=== PATIENT | male | born 1950 | race African-American/Black ===

== ENCOUNTER 2019-07-14 05:17 | Day surgery (SDC) | payer MEDICARE, OTHER ==
--- NOTE | 2019-07-11 14:15 | Pre-op HX & Phy Repo 2 SIG ---
DATE OF ADMISSION: 07/14/2019 Surgery will be July 14, 2019. PREOPERATIVE DIAGNOSIS: Choroidal effusions with flat anterior chamber, right eye. BRIEF NOTE: This is a first [place] admission for the patient, who is a very nice 69-year-old gentleman with a long history of glaucoma. He had a trabeculectomy surgery performed on the right eye in June and although the pressure reduced, he developed choroidal effusions on the flat anterior chamber. The drug discovery informatics specialist made an attempt to deepen the chamber with an injection at the office. This worked for a time, but the choroidal effusions caused anterior movement of the lens and iris complex. He was admitted for drainage of the choroidals and reformation of the anterior chamber. PAST MEDICAL HISTORY: Remarkable for diabetes, elevated cholesterol. MEDICATIONS: He is on Humulin, atorvastatin, amlodipine, and benazepril. ALLERGIES: He has no known allergies. PHYSICAL EXAMINATION: Best vision at the time of the visit was 20/200 in the right eye and 20/20 in the left with pressures of 18 and 19. The anterior segment on the right showed a filtering bleb at the 11 o'clock position, which appeared functional. The anterior chamber was flat. The cornea however remained clear. There was a moderate nuclear cataract. The left anterior segment showed 3+ nuclear sclerosis with the chamber being deep and quiet. Funduscopic examination showed ring choroidal effusions, not kissing. There was glaucomatous cupping at about 0.6. No evidence of vitreous hemorrhage was seen. The left fundus showed a 0.45 cup with normal-appearing posterior pole. There was no evidence of diabetic retinopathy in either eye. ASSESSMENT: 1. Serous choroidal effusions, right eye with shallow anterior chamber. 2. Primary open angle glaucoma. 3. Diabetes without evidence of retinopathy. PLAN: The plan is to perform a drainage procedure in at least two quadrants of the choroidal effusions. While at the same time, deepening the anterior chamber. The risks and benefits of the surgery gone over with the patient with potential for hemorrhage, infection, retinal detachment, worsening of the glaucoma, and the possibility of loss of the eye. The risk of anesthesia was discussed. The patient understands and consents to surgery, which will be performed on Sunday. Pierre Garcia M.D. DR: ANSHU JOB#: [id number] CC:
[2019-07-14] VITALS (8 sets, daily range): BP systolic 155–176; BP diastolic 72–108
[~2019-07-14] VITALS: Ht 175.3 cm; Wt 110.7 kg
[~2019-07-14 05:17] MED LIST: ASPIR 8181 MG ORAL; Atorvastatin PO; Benazepril PO; FLOMAX0.4 MG ORAL; HUMULIN R100 UNIT/1 SUBQ; LYRICA200 MG ORAL; METFORMIN HCL1000 M1 ORAL; PLAVIX75 MG ORAL; Vit D3 PO; trulicity SUBQ
[2019-07-14] MEDS ORDERED: prednisoLONE acetate 1% Opth Susp 1ml RIGHT EYE ONE (06:00)
[2019-07-14] MEDS: Cyclopentolate 1% Opth Sol 2ml RIGHT EYE SCH ×3 (06:10→06:34)
[2019-07-14] MEDS: Flurbiprofen 0.03% Opth Sol 2.5ml RIGHT EYE SCH ×3 (06:10→06:34)
[2019-07-14] MEDS: Vigamox Opth Soln 3ml RIGHT EYE SCH ×3 (06:10→06:34)
[2019-07-14] MEDS: Phenylephrine 2.5% Op 2ml Soln RIGHT EYE SCH ×3 (06:10→06:34)
[2019-07-14] MEDS ORDERED: LR 1000ml 1,000 ML IVLG SCH (06:29)
--- NOTE | 2019-07-14 06:29 | Anethesia Preoperative Eval ---
Anesthesia Pre-op PMH/ROS General Date of Evaluation: Jul 14, 2019 Anesthesiologist: Carlos ASA Score: ASA 3 Mallampati Score Class I : Soft palate, uvula, fauces, pillars visible Class II: Soft palate, uvula, fauces visible Class III: Soft palate, base of uvula visible Class IV: Only hard plate visible Mallampati Classification: Class III Surgeon: Radha Diagnosis: right eye glaucoma Surgical Procedure: right eye drainage of choroidals, injection BSS Anesthesia History: none Family History: no anesthesia problems Allergies: Coded Allergies: No Known Allergies (Unverified , 07/10/19) Medications: see eMAR Patient NPO?: Yes NPO Date: Jul 14, 2019 NPO Time: 00:00 Past Medical History Cardiovascular: Reports: HTN, CAD, other - HLD; Denies: NM, valve dz, arrhythmia Pulmonary: Denies: asthma, COPD, SADE, other Gastrointestinal/Genitourinary: Reports: GERD, other - BPH; Denies: CRI, ESRD Neurologic/Psychiatric: Denies: dementia, CVA, depression/anxiety, TIA, other Endocrine: Reports: DM; Denies: hypothyroidism, steroids, other HEENT: Denies: cataract (L), cataract (R), glaucoma, KALSKAG (L), KALSKAG (R), other Hematology/Immune: Reports: anemia, other - hep C; Denies: DVT, bleeding disorder Musculoskeletal/Integumentary: Reports: OA; Denies: RA, DJD, DDD, edema, other Other: obesity PSxH Narrative: Right eye vitrectomy, fem-pop bypass Anesthesia Pre-op Phys. Exam Physician Exam Last Vital Signs Date Time Temp Pulse Resp B/P (MAP) Pulse Ox O2 Delivery O2 Flow Rate FiO2 07/14/19 06:14 Room Air 07/14/19 06:12 98.0 71 18 155/72 96 Constitutional: NAD Cardiovascular: RRR Respiratory: CTA Airway Exam Mallampati Score: Class III MO: limited ROM: limited Dentures: upper, lower Anesthesia Pre-op A/P Labs see chart Studies Pre-op Studies: EKG - sr Risk Assessment & Plan Assessment: ASA III Plan: MAC Status Change Before Surgery: No Pre-Antibiotics Drug: N/A Abeba Monroe MD Jul 14, 2019 06:29
[2019-07-14] MEDS ORDERED: DiphenhydrAMINE 50mg/ml Inj IVP PRN (06:30)
[2019-07-14] MEDS ORDERED: LORazepam Inj 2mg/ml 1ml IV PRN (06:30)
[2019-07-14] MEDS ORDERED: Kenalog-40 1ml Vial ONE (06:36)
[2019-07-14] MEDS ORDERED: Maxitrol Opth Susp 5ml ONE (06:36)
[2019-07-14] MEDS ORDERED: Kenalog-10 5ml Inj ONE (06:36)
[2019-07-14] MEDS ORDERED: Lidocaine 2% MPF 5ml Vial INJ ONE (06:36)
[2019-07-14] MEDS ORDERED: Tetracaine 0.5% Opth 4ml Soln ONE (06:37)
[2019-07-14] MEDS ORDERED: BSS 15ml BTL ONE ×2 (06:37→07:07)
[2019-07-14] MEDS ORDERED: Triamcinolone 40mg/ml PF Vial ONE (06:37)
[2019-07-14] MEDS ORDERED: Bupivacaine 0.75% 30ml vial INJ ONE (06:37)
[2019-07-14] MEDS ORDERED: Dexamethasone 4mg/ml vial ONE (06:37)
[2019-07-14] MEDS ORDERED: Hyaluronidase 150 units/ml vial ONE (06:38)
[2019-07-14] MEDS ORDERED: Povidone-Iodine 5% opth solution ONE (06:38)
[2019-07-14] MEDS ORDERED: Lidocaine 1% MPF 10mg/ml 5ml ONE (06:42)
[2019-07-14] MEDS ORDERED: Midazolam 2mg/2ml Inj ONE (06:42)
[2019-07-14] MEDS ORDERED: fentaNYL 100 mcg/2 mL IV ONE (06:42)
[2019-07-14] MEDS ORDERED: prednisoLONE acetate 1% Opth Susp 1ml ONE (07:04)
[2019-07-14] MEDS ORDERED: Sodium Hyaluronate 10 mg/ml 0.85ml ONE (07:05)
--- NOTE | 2019-07-14 07:14 | Pre-Procedure Note/Attestation ---
Pre-Procedure Note/Attestation Complete Prior to Procedure Planned Procedure: right Procedure Narrative: Drainage of choroidal effusions, reformation of anterior chamber, RIGHT eye Indications for Procedure Pre-Operative Diagnosis: Serous choroidal effusions with flat anterior chamber RIGHT eye Attestation I attest that I discussed the nature of the procedure; its benefits; risks and complications; and alternatives (and the risks and benefits of such alternatives ), prior to the procedure, with the patient (or the patient's legal territory account representative). I attest that, if there was a reasonable possibility of needing a blood transfusion, the patient (or the patient's legal territory account representative) was given the [facility] standardized written summary, pursuant to the Dagoberto Wisdom Blood Safety Act ([place] Health and Safety Code # 1645, as amended). I attest that I re-evaluated the patient just prior to the surgery and that there has been no change in the patient's H&P, except as documented below: Pierre Garcia MD Jul 14, 2019 07:14
[2019-07-14 07:16] LABS: BASOPHILS % (AUTO) 2.5 % (0.0-2.0); EOSINOPHILS % (AUTO) 3.4 % (0.0-3.0); HEMATOCRIT 44.6 % (42.0-52.0); HEMOGLOBIN 15.4 G/DL (14.2-18.0); LYMPHOCYTES % (AUTO) 32.9 % (20.0-45.0); MEAN CORPUSCULAR VOLUME 85 FL (80-99); MONOCYTES % (AUTO) 10.8 % (1.0-10.0); NEUTROPHILS % (AUTO) 50.4 % (45.0-75.0); PLATELET COUNT 203 K/UL (150-450); RED BLOOD COUNT 5.26 M/UL (4.70-6.10); WHITE BLOOD COUNT 6.2 K/UL (4.8-10.8)
[2019-07-14 07:17] LABS: ANION GAP 7 mmol/L (5-15); BLOOD UREA NITROGEN 7 mg/dL (7-18); CALCIUM 9.1 MG/DL (8.5-10.1); CARBON DIOXIDE 30 MMOL/L (21-32); CHLORIDE 106 MMOL/L (98-107); POTASSIUM 3.9 MMOL/L (3.5-5.1); SODIUM 143 MMOL/L (136-145)
[2019-07-14 07:20] LABS: INR 1.1 (0.9-1.1)
[2019-07-14] MEDS ORDERED: Sterile Water Irrig 1000ml IRRIG ONE (07:30)
[2019-07-14] MEDS ORDERED: LR 1000ml ONE (07:30)
[2019-07-14] MEDS ORDERED: NS Irrig 1000ml ONE (07:30)
[2019-07-14] MEDS ORDERED: Propofol 200mg/20ml IV ONE (07:30)
[2019-07-14] MEDS ORDERED: Polysporin Opth Oint 3.5gm ONE (08:10)
--- NOTE | 2019-07-14 08:38 | Immediate Post-Op Evaluation ---
Immediate Post-Op Evalulation Immediate Post-Op Evalulation Procedure: right eye drainage of choroidals effusion Date of Evaluation: Jul 14, 2019 Time of Evaluation: 08:41 IV Fluids: 200 Blood Products: 0 Estimated Blood Loss: min Urinary Output: 0 Blood Pressure Systolic: 176 Blood Pressure Diastolic: 88 Pulse Rate: 75 Respiratory Rate: 16 O2 Sat by Pulse Oximetry: 96 Temperature (Fahrenheit): 97.3 Pain Score (1-10): 0 Nausea: No Vomiting: No Complications 0 Patient Status: awake, reacts, patent, none Hydration Status: adequate Drug: N/A Abeba Monroe MD Jul 14, 2019 08:38
--- NOTE | 2019-07-14 08:39 | 48 Hour Post Anesthesia Eval ---
Post Anesthesia Evaluation Procedure: right eye drainage of choroidals effusion Date of Evaluation: Jul 14, 2019 Airway: patent Nausea: No Vomiting: No Hydration Status: adequate Cardiopulmonary Status: at baseline Mental Status/LOC: patient returned to baseline Post-Anesthesia Complications: 0 Follow-up care needed: ready to discharge Abeba Monroe MD Jul 14, 2019 08:39
--- NOTE | 2019-07-14 08:40 | Brief Operative Note ---
Immediate Post Operative Note Operative Note Chief Complaint: Blurred vision RIGHT eye Pre-op Diagnosis: Serous choroidal effusions with flat anterior chamber RIGHT eye Procedure: Drainage of choroidal effusions, reformation of anterior chamber RIGHT eye Post-op Diagnosis: same as pre-op Surgeon: jason Anesthesiologist: khushi Anesthesia: MAC Specimen: none Complications: none Condition: stable Fluids: Per anesthesia Estimated Blood Loss: none Drains: none Implant(s) used?: No Pierre Garcia MD Jul 14, 2019 08:40
[2019-07-14] MEDS ORDERED: HYDROcodone/Acetamin 5/325 tab ORAL PRN (11:30)
--- NOTE | 2019-07-14 15:00 | Pre-op HX & Phy Repo 2 SIG ---
DATE OF ADMISSION: 07/14/2019 PRESURGICAL INTERNAL MEDICINE HISTORY AND PHYSICAL REASON FOR EVALUATION: I was asked by Dr. Pierre Garcia to see this 69-year-old male, who going for elective surgery on the left eye. The patient has a choroidal effusion with a flat anterior chamber. The patient was evaluated. Chart was reviewed. Please also see the History and Physical by Dr. Pierre Garcia. PAST MEDICAL HISTORY AND REVIEW OF SYSTEMS: Remarkable for insulin-dependent diabetes mellitus, hypertension, history of peripheral arterial insufficiency leg, peripheral diabetic neuropathy, obesity. Denies history of chest pain, palpitation, or heart attack. Denies history of stroke or seizures. No history of respiratory problem, asthma, or bronchitis. No history of peptic ulcer disease or GI bleeding. No history of hepatitis. Denies history of renal failure. The patient has history of overactive bladder. No thyroid problem. No anemia. SURGICAL HISTORY: Surgery on the right eye glaucoma and two surgeries aortofemoral bypass surgery from left to right femoral. FAMILY HISTORY: Father had diabetes mellitus and mother cancer. ALLERGIES: Not known. PRESENT MEDICATIONS: Include insulin 120 units in the morning and 50 units afternoon, metformin, Flomax, baby aspirin, Plavix, benazepril, amlodipine. HABITS: The patient smoked for 47 years and stopped in 2007. alcohol. The patient was a heroin user until 1998. PHYSICAL EXAMINATION: GENERAL: The patient is alert, obese male in his 70s. Weight 244 pounds. VITAL SIGNS: Blood pressure 155/77, temperature 98, pulse 71 and regular, respirations 18, O2 saturation 96% on room air. SKIN: Dry, scaly both legs. No ulcers or rashes. LYMPHATICS: Lymph nodes not enlarged. HEENT: Head, normocephalic, atraumatic. Ears, clear. Eyes, full description per Dr. Garcia. Mouth, clear and moist without dentures upper and below. NECK: No jugular vein distention. Carotids artery +2. Trachea midline. CHEST: No asymmetry or deformity. LUNGS: Clear. No rales or rhonchi. HEART: Sounds distant. No murmur. No S3, S4. ABDOMEN: Soft, obese. Liver and spleen not enlarged. No palpable mass. EXTREMITIES: No peripheral edema. No varicose vein. Diminished peripheral pulse on both . GENITOURINARY TRACT: Normal for gender. Overactive bladder. The patient is on Flomax. NERVOUS SYSTEM: Peripheral diabetic neuropathy. No tremor. No nystagmus. Electrocardiogram, normal sinus rhythm, 66 per minute, left axis deviation, anterior infarct old. LABORATORY DATA: Chemistry pending. Blood sugar 250 mg/dL. CBC is pending. The patient did not eat or drink since 8 p.m. yesterday. IMPRESSION: 1. Choroidal effusion with flat anterior chamber, right eye. 2. Insulin-dependent diabetes mellitus, poor control. 3. Hypertension. 4. Peripheral artery disease. 5. Diabetic peripheral neuropathy. 6. Obesity. 7. Overactive bladder. PLAN: Drainage choroidal, right eye. Injection BSS per Dr. Pierre Garcia. CONCLUSION: The patient is a 69-year-old male, who has multiple medical problems including poorly controlled diabetes mellitus, hypertension, obesity, anterior DE on EKG clinically negative, obesity. The patient's blood sugar 250 mg/dL. Chemistry pending. The patient did not eat or drink from 8 p.m. yesterday. The patient's condition optimized for surgery. Thank you very much, Dr. Garcia, for privilege to participate in presurgical care of this interesting patient. Jose Jones M.D. DR: JUANJSOE JOB#: [id number] CC:
--- NOTE | 2019-07-14 15:30 | Operative Note - Dictated ---
DATE OF OPERATION: 07/14/2019 PREOPERATIVE DIAGNOSIS: Serous choroidal effusions with flat anterior chamber, right eye. POSTOPERATIVE DIAGNOSIS: Serous choroidal effusions with flat anterior chamber, right eye. PROCEDURES: 1. Drainage of serous choroidal effusions. 2. Deepening of anterior chamber, right eye. SURGEON: Pierre Garcia M.D. TWISTING OPERATOR: None. ANESTHESIA: Local with sedation. ANESTHESIOLOGIST: Dr. Lenz. JUSTIFICATION FOR SURGERY: This 69-year-old gentleman underwent glaucoma surgery two weeks ago. The pressure was lowered but the anterior chamber was flattened and significant choroidal effusions were noted on ultrasound. He was admitted for deepening of the chamber and drainage of choroidal. BRIEF NOTE: The patient was brought to the operative room, placed on the OR table in supine position. After a time-out was performed and agreed upon by the staff and initial monitoring secured by anesthesia, retrobulbar and Van Lint block were given in the standard way. When the blocks taken effect, he was prepped and draped in normal manner. A lid speculum inserted into the right eye. Using Edison scissors, a small cutdown through conjunctiva and tenons was made at the 10 o'clock and again at the 2 o'clock positions. A paracentesis was then made at the 9:30 position and Healon was used to deepen the anterior chamber. With the pressure slightly elevated from the Healon, small sclerotomies were made 4 mm from the limbus both at the 2 and 10 o'clock positions. Counter pressure on the eye allowed clear serous fluid to drain. The Healon was evacuated with balanced salt solution and the eye was reinflated with balanced salt solution into the anterior chamber. When drainage had ceased and the chamber appeared to maintain depth, the small sclerotomies were closed with 8-0 Vicryl suture. The overlying conjunctiva was closed with a similar suture with the knot buried. The paracentesis was left to be self-sealing. Subconjunctival Kenalog 40 mg was injected inferiorly and Decadron and gentamicin combination was injected in the subconjunctival spaces. Topical atropine drops, prednisolone drops, moxifloxacin drops, and Maxitrol ointment were instilled. The eye was patched and shielded. The patient taken to recovery in excellent condition. There were no complications. Pierre Garcia M.D. DR: Alon JOB#: [id number] CC: Pierre Garcia M.D.; Fax#: [phone]
== END 2019-07-14 09:55 | disposition home or self-care (01) ==
LOC: SUR 05:17
DX: H31 Other disorders of choroid (principal); Z79.82 Long term (current) use of aspirin; Z79.02 Long term (current) use of antithrombotics/antiplatelets; E11.9 Type 2 diabetes mellitus without complications; Z79.4 Long term (current) use of insulin; I73.9 Peripheral vascular disease, unspecified; E11.42 Type 2 diabetes mellitus with diabetic polyneuropathy; E66.9 Obesity, unspecified; I11.9 Hypertensive heart disease without heart failure; E78.5 Hyperlipidemia, unspecified; M19.90 Unspecified osteoarthritis, unspecified site; Z86.19 Personal history of other infectious and parasitic diseases; Z68.36 Body mass index [BMI] 36.0-36.9, adult
CPT/HCPCS: 36415; 65800; 80048; 82962; 85025; 85610; 85730; 93005; J1100; J2250; J2704; J3010; J3300; J3470; J3490; J7120; 94003; 94150